=== PATIENT | female | born 1955 | race Hispanic/Latino ===

== ENCOUNTER 2022-12-28 03:53 | Emergency (ER) | payer OTHER, SELFPAY ==
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
[2022-12-28 03:54] VITALS: BP 170/90; PULSE 67; RESP 11; TEMP 36.7; O2SAT 98
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
[2022-12-28] MEDS: ACETAMINOPHEN 500 MG TABLET 1000 MG PO (05:40)
[2022-12-28] MEDS: oxyCODONE HCL (*CRX) 5 MG TAB IR PO (05:41)
[2022-12-28 05:47] VITALS: BP 144/78; PULSE 67; RESP 18; O2SAT 99
--- NOTE | 2022-12-28 06:22 | PC.NURSE ---
contacted pt. family member about pt.status and that they are being transferred to [facility]
[2022-12-28 07:40] VITALS: BP 107/72; PULSE 67; RESP 20; O2SAT 97
--- NOTE | 2022-12-28 08:59 | PC.NURSE ---
Pt placed in new C-collar.
[2022-12-28 09:54] VITALS: BP 107/65; PULSE 54; RESP 18; O2SAT 96
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
--- NOTE | 2022-12-28 10:54 | PC.NURSE ---
Terrell amaral updated at 0725 will now be 0930 for transport. Called Irma Amaral. 0726 cant, do transport., [facility] 0733, cant do transport. We updated with Terrell at 0957 5-10 min enroute., here 1017.
== END 2022-12-28 10:31 | disposition short-term general hospital (02) ==
PROVIDERS: Emergency Provider Emergency Medicine
DX: S22.41XA Multiple fractures of ribs, right side, initial encounter for closed fracture (principal); M54.2 Cervicalgia; V74.6XXA Passenger on bus injured in collision with heavy transport vehicle or bus in traffic accident, initial encounter
CPT/HCPCS: 70450; 71045; 71250; 72125; 74176; 99284; 99285; A9270; L0140